=== PATIENT | male | born 1955 | race Caucasian/White ===

== ENCOUNTER → 2021-02-19 | Outpatient (CLI) | payer MEDICARE, OTHER ==
[2021-02-19 14:25] LABS: BASOPHILS ABSOLUTE AUTO 0.08 K/mm3 (0.00-0.23); BASOPHILS PERCENT AUTO 1 % (0-2); EOSINOPHILS ABSOLUTE AUTO 0.12 K/mm3 (0.00-0.68); EOSINOPHILS PERCENT AUTO 1 % (0-6); Hematocrit 40.5 % (37.0-53.0); IMMATURE GRAN ABSOLUTE AUTO 0.06 K/mm3 (0.00-0.10); IMMATURE GRAN PERCENT AUTO 0 % (0-1); LYMPHOCYTES ABSOLUTE AUTO 1.81 K/mm3 (0.84-5.20); LYMPHOCYTES PERCENT AUTO 12 % (21-46); MONOCYTES ABSOLUTE AUTO 1.86 K/mm3 (0.16-1.47); MONOCYTES PERCENT AUTO 13 % (4-13); Mean Corpuscular HGB 32.6 pg (26.0-34.0); Mean Corpuscular HGB Conc 34.6 g/dL (31.5-36.5); Mean Corpuscular Volume 94 fL (80-100); Mean Platelet Volume 9.2 fL (9.1-12.4); NEUTROPHILS ABSOLUTE AUTO 10.64 K/mm3 (1.96-9.15); NEUTROPHILS PERCENT AUTO 73 % (41-73); Platelet Count 408 K/mm3 (150-400); RDW Coefficient Variation 11.9 % (11.7-14.2); RDW Standard Deviation 40.9 fL (35.1-46.3); Red Blood Cell Count 4.29 M/mm3 (4.30-5.90); White Blood Cell Count 14.57 K/mm3 (4.00-11.30)
[2021-02-19 14:37] LABS: Alanine Aminotransfer (ALT/SGP 48 U/L (12-78); Albumin, Blood 3.1 g/dL (3.4-5.0); Albumin/Globulin Ratio 0.6 (0.8-1.8); Alk Phos 240 U/L (40-126); Anion Gap 8 mmol/L (6-16); Aspartate Aminotrans (AST/SGOT 36 U/L (12-37); Bilirubin, Total 0.7 mg/dL (0.1-1.0); Blood Urea Nitrogen 15 mg/dL (8-24); Bun/Creatinine Ratio 11.6 (12.0-20.0); CO2, Blood 30 mmol/L (21-32); Calcium, Blood 9.6 mg/dL (8.5-10.1); Chloride, Blood 97 mmol/L (98-108); Creatinine, Blood 1.29 mg/dL (0.60-1.20); Globulin, Blood 4.9 g/dL (2.2-4.0); Glomerular Filtration Rate 56 (60-); Glucose, Blood 88 mg/dL (70-99); Potassium, Blood 4.5 mmol/L (3.5-5.5); Sodium, Blood 135 mmol/L (136-145); Uric Acid, Blood 5.5 mg/dL (3.5-7.2)
[2021-02-19 14:40] LABS: Troponin I <0.017 ng/mL (0.000-0.040)
[2021-02-19 15:26] LABS: International Normalized Ratio 1.04; Prothrombin Time Results 10.9 Sec (9.7-11.5)
== END ==
LOC: LAB 14:13 → LAB SHORT 14:13
PROVIDERS: Physician Assistant
DX: F10.20 Alcohol dependence, uncomplicated (principal); R07.9 Chest pain, unspecified; Z87.39 Personal history of other diseases of the musculoskeletal system and connective tissue
CPT/HCPCS: 80053; 84484; 84550; 85025; 85610

== ENCOUNTER → 2023-11-05 | Outpatient (CLI) | payer MEDICARE, OTHER ==
[2023-11-05 15:00] LABS: Albumin/Globulin Ratio 1.1 (0.8-1.8); Bilirubin, Total 0.6 mg/dL (0.1-1.0); Bun/Creatinine Ratio 16.7 (12.0-20.0); Calcium, Blood 9.5 mg/dL (8.5-10.1); Creatinine, Blood 1.02 mg/dL (0.60-1.20); Globulin, Blood 3.8 g/dL (2.2-4.0); Luteinizing Hormone 10.5 mIU/ml (1.2-10.6); Potassium, Blood 4.3 mmol/L (3.5-5.5); Prolactin 6.8 ng/mL (2.5-17.4); Total Protein, Blood 7.8 g/dL (6.4-8.2)
[2023-11-06 10:01] LABS: BASOPHILS PERCENT AUTO 2 % (0-2); EOSINOPHILS ABSOLUTE AUTO 0.23 K/mm3 (0.00-0.68); EOSINOPHILS PERCENT AUTO 4 % (0-6); Hematocrit 42.5 % (37.0-53.0); IMMATURE GRAN ABSOLUTE AUTO 0.01 K/mm3 (0.00-0.10); IMMATURE GRAN PERCENT AUTO 0 % (0-1); LYMPHOCYTES ABSOLUTE AUTO 1.95 K/mm3 (0.84-5.20); LYMPHOCYTES PERCENT AUTO 31 % (21-46); MONOCYTES ABSOLUTE AUTO 0.64 K/mm3 (0.16-1.47); MONOCYTES PERCENT AUTO 10 % (4-13); Mean Corpuscular HGB Conc 35.3 g/dL (31.5-36.5); Mean Corpuscular Volume 94 fL (80-100); Mean Platelet Volume 10.8 fL (9.1-12.4); NEUTROPHILS ABSOLUTE AUTO 3.33 K/mm3 (1.96-9.15); NEUTROPHILS PERCENT AUTO 53 % (41-73); Platelet Count 204 K/mm3 (150-400); RDW Coefficient Variation 12.4 % (11.7-14.2); RDW Standard Deviation 43.1 fL (35.1-46.3); Red Blood Cell Count 4.54 M/mm3 (4.30-5.90); White Blood Cell Count 6.26 K/mm3 (4.00-11.30)
[2023-11-07 18:25] LABS: ESTRADIOL BY IMMUNOASSAY 34 pg/mL
== END | disposition home or self-care (01) ==
LOC: LAB SHORT 12:14 → LAB 12:14
PROVIDERS: Physician Assistant
DX: N62 Hypertrophy of breast (principal); R09.89 Other specified symptoms and signs involving the circulatory and respiratory systems
CPT/HCPCS: 80053; 82670; 83002; 84146; 84403; 84443; 85025

== ENCOUNTER 2024-05-30 10:23 | Day surgery (SDC) | payer MEDICARE, OTHER ==
[~2024-05-30] VITALS: Ht 180.3 cm; Wt 92.0 kg
[2024-05-30] VITALS (10 sets, daily range): BP systolic 123–154; BP diastolic 57–86
[~2024-05-30 10:23] MED LIST: Bupivacaine 0.5% W/EPI 1:200000 SDV 30 ML Vial ONE; CATAPRES0.1 MG PO; CLEOCIN T60 G1 TOP; CeFAZolin Sodium 2,000 MG VIAL ONE; CeFAZolin Sodium 2,000 MG in NS 100 ML IV SCH; Flonase 0.05% N16 GM; GABA300 PO; INDO50 PO; LOSA50 PO; Lactated Ringer's 1,000 ML IV SCH; MUPIROCIN2210; OMEP20ER PO; Prinivil10 MG PO; Retin-A20 G1; Retin-A20 G2; TEMA30 PO; TERB250 PO; TRAZ50 PO; Viagra100 MG PO
--- NOTE | 2024-05-30 11:10 | NUR ---
Ambulatory in Day Surgery History, Chart, Medications and Allergies reviewed before start of procedure. Pre-Op teaching done. Pt verbalizes understanding. Patient States Post-Procedure ride home has been arranged.
[2024-05-30] MEDS ORDERED: Midazolam HCl 1MG / ML 2ML Vial IV SCH (11:35)
[2024-05-30] MEDS ORDERED: Midazolam HCl 1MG / ML 2ML Vial ONE (11:37)
[2024-05-30] MEDS ORDERED: propofoL 20 ML IV ONE (11:52)
[2024-05-30] MEDS ORDERED: FentaNYL Citrate 50 MCG/ML 2 ML Injection ONE (11:53)
[2024-05-30] MEDS ORDERED: SuccINYLCHOLINE Chloride 100 MG/5 ML 5MLSYR ONE (12:00)
[2024-05-30] MEDS ORDERED: Rocuronium Bromide 10 MG/ML 5ML Injection IV ONE (12:00)
[2024-05-30] MEDS ORDERED: Phenylephrine HCl 100 MCG/ML-NS 10MLSYR (1MG/10ML) ONE (12:01)
[2024-05-30] MEDS ORDERED: Phenylephrine HCl 10mg/ml 1 ml Vial ONE (12:07)
[2024-05-30] MEDS ORDERED: Sugammadex Sodium 200 MG/2ML SDV (100 MG/ML) ONE (13:17)
[2024-05-30] MEDS ORDERED: Ketorolac Tromethamine 30mg Vial ONE (13:23)
[2024-05-30] MEDS ORDERED: HYDROmorphone HCl/Pf 1MG SYR ONE (13:24)
--- NOTE | 2024-05-30 13:34 | NUR ---
05/30/24 1334 Jose Cruz Venegas 14FR COONEY PLACED STERILY BY JOSE CRUZ RAMSEY UNDER VERBAL ORDER FROM DR. SHAY GALO RN
[2024-05-30] MEDS ORDERED: HYDROcodone 5-APAP 325 TAB PO PRN ×2 (14:05→14:15)
--- NOTE | 2024-05-30 14:45 | NUR ---
DISCHARGE PT A&OX4/VSS/RA/C&DBS/FOLLOWS COMMANDS/TALKING, DC INS PROVIDED, PT REP UNDERSTANDING THOSE INSTRUCTIONS/COPY PROVIDED TO PT, DRESSED SELF, SYDNEE PO H20, IV DC'D, LEFT VIA WC WITH RN TO GO HOME WITH SON IN LAW/APARTMENT LOCATOR WITH ALL PERSONAL POSSESSIONS INCLUDING DC INS/1NARC SCRIPT.
== END 2024-05-30 23:00 | disposition home or self-care (01) ==
LOC: ORSCMMR 10:23 → ORD 11:45 → ORSCMMR 23:00 → ORD 06-15 07:30
PROVIDERS: Surgery
PROC: 8E0W4CZ Robotic Assisted Procedure of Trunk Region, Percutaneous Endoscopic Approach (ICD-10-PCS; principal; 2024-05-30 10:30)
PROC: 0YU64JZ Supplement Left Inguinal Region with Synthetic Substitute, Percutaneous Endoscopic Approach (ICD-10-PCS; principal; 2024-05-30 10:30)
DX: K40.90 Unilateral inguinal hernia, without obstruction or gangrene, not specified as recurrent (principal); D17.6 Benign lipomatous neoplasm of spermatic cord; I10 Essential (primary) hypertension; K21.9 Gastro-esophageal reflux disease without esophagitis; Z79.899 Other long term (current) drug therapy
CPT/HCPCS: A9270; C1781; J0330; J0690; J1171; J1885; J2250; J2371; J2704; J3010; J7120